=== PATIENT | male | born 1970 | race Caucasian/White ===

== ENCOUNTER 2020-07-11 17:48 | Emergency (ER) | payer OTHER ==
[2020-07-11 19:51] LABS: BASOPHIL 0.5 % (0-2); EOSINOPHIL 0 % (0-5); HCT 43.7 % (42.0-52.0); HGB 14.1 g/dl (13.2-18.0); LYMPHOCYTE 25.9 % (15-48); MCH 27.3 pg (25.0-31.0); MCHC 32.3 g/dL (32.0-36.0); MCV 84.7 fL (78.0-100.0); MONOCYTE 13.7 % (0-12); MPV 10.8 fL (6.0-9.5); NEUTROPHIL 59.5 % (41-80); NRBC 0; PLT 266 K/uL (150-400); RBC 5.16 M/uL (4.70-6.00); RDW 14.1 % (11.5-14.0); WBC 7.6 K/uL (4.0-10.5)
[2020-07-11 20:02] LABS: BUN/CREAT RATIO (CALC) 21.8 RATIO; CREATININE 0.78 mg/dL (0.67-1.17); POTASSIUM 4.2 mmol/L (3.5-5.1)
== END 2020-07-11 22:12 | disposition home or self-care (01) ==
LOC: FER 17:48
PROVIDERS: Nurse Practitioner Family
DX: S86.112A Strain of other muscle(s) and tendon(s) of posterior muscle group at lower leg level, left leg, initial encounter (principal); E11.9 Type 2 diabetes mellitus without complications; I10 Essential (primary) hypertension; X58.XXXA Exposure to other specified factors, initial encounter; Y93.01 Activity, walking, marching and hiking; Y92.828 Other wilderness area as the place of occurrence of the external cause
CPT/HCPCS: 36415; 80048; 85025; 85379; 93971